=== PATIENT | male | born 1965 | race Caucasian/White ===

== ENCOUNTER 2018-01-18 13:29 | Emergency (ER) | payer SELFPAY ==
[2018-01-18] MEDS ORDERED: Fluorescein Sod TOPICAL 0.6* 0.6 MG TEST OPHTHALMIC ONE (14:04)
--- NOTE | 2018-01-18 14:13 | ED ---
Throat Pain/Nasal Congestion - HPI Summary HPI Summary: This is scryusrae Miller Culp documenting for attending Bertt Lee MD. This patient is a 52 year old M presenting to [facility] with a chief complaint of an aching L eye irritation since last night. The patient rates the pain 4/10 in severity. He believes it is rust from working on a car for his son at home. He treated it by flushing with water [employer]. He typically takes medications for HTN, but he did not take it this morning. - History of Current Complaint Chief Complaint: EDEyeProblem Time Seen by Provider: 01/18/18 14:03 Hx Obtained From: Patient Onset/Duration: Sudden Onset, Lasting Days - since last night, Still Present Severity: Moderate Cough: None - Allergies/Home Medications Allergies/Adverse Reactions: Allergies Allergy/AdvReac Type Severity Reaction Status Date / Time No Known Allergies Allergy Verified 01/18/18 13:37 Home Medications: Home Medications Lisinopril/HCTZ 10/12.5(NF) 10 - 12.5 mg PO DAILY 01/18/18 [History Confirmed ] PMH/Surg Hx/FS Hx/Imm Hx Endocrine/Hematology History: Denies: Hx Diabetes, Hx Thyroid Disease Cardiovascular History: Reports: Hx Hypertension Respiratory History: Denies: Hx Asthma, Hx Chronic Obstructive Pulmonary Disease (COPD) GI History: Denies: Hx Ulcer - Surgical History Surgery Procedure, Year, and Place: hernia repair, back Infectious Disease History: No Infectious Disease History: Denies: Hx Hepatitis, Hx Human Immunodeficiency Virus (HIV), Traveled Outside the [place] in Last 30 Days - Family History Known Family History: Positive: Cardiac Disease, Other - Cancer Negative: Hypertension, Diabetes - Social History Occupation: Employed Full-time Alcohol Use: Weekly Substance Use Type: Reports: None Smoking Status (MU): Never Smoked Tobacco Review of Systems Negative: Fever Positive: Other - aching L eye irritation All Other Systems Reviewed And Are Negative: Yes Physical Exam - Summary Physical Exam Summary: Appearance: Well appearing, no pain distress Skin: warm, dry, reflects adequate perfusion Head/face: normal Eyes: EOMI, GLEN. No foreign body with eye eversion. No injection. No fluorescein uptake. ENT: normal Neck: supple, non-tender Respiratory: CTA, breath sounds present Cardiovascular: RRR, pulses symmetrical Abdomen: non-tender, soft Bowel Sounds: present Musculoskeletal: normal, strength/ROM intact Neuro: normal, sensory motor intact, A&Ox3 Triage Information Reviewed: Yes Vital Signs On Initial Exam: Initial Vitals Temp Pulse Resp BP Pulse Ox 97.8 F 76 16 152/95 96 01/18/18 13:34 01/18/18 13:34 01/18/18 13:34 01/18/18 13:34 01/18/18 13:34 Vital Signs Reviewed: Yes Diagnostics - Vital Signs Vital Signs Temp Pulse Resp BP Pulse Ox 01/18/18 13:34 97.8 F 76 16 152/95 96 - Laboratory Lab Statement: Any lab studies that have been ordered have been reviewed, and results considered in the medical decision making process. EENT Course/Dx - Course Course Of Treatment: No foreign body definitively identified by everting the lids. No floor seen uptake was seen. Slight discomfort was relieved with tetracaine topical. I will prescribe erythromycin and have him follow up closely with primary care physician. No evidence for iritis. No photophobia, pupillary constriction etc. - Diagnoses Provider Diagnoses: Sensation of foreign body in eye Discharge - Sign-Out/Discharge Documenting (check all that apply): Patient Departure - D/C - Discharge Plan Condition: Improved Disposition: HOME Prescriptions: Erythromycin OPTH OINT* [Erythromycin 0.5% OPTH OINT*] 1 applic LEFT EYE TID 3 Days #1 ophth.oint Patient Education Materials: Eye Foreign Body (ED) Referrals: Keyur Linares MD [Medical Doctor] - Additional Instructions: Call the eye doctor to follow-up first thing Saturday. Return with eye pain, redness, worse, new symptoms or other concerns. - Billing Disposition and Condition Condition: IMPROVED Disposition: Home
[2018-01-18] MEDS ORDERED: Tetracaine 0.5% OPTH.SOL 15ML* BTL ONE (14:16)
[2018-01-18 15:38] VITALS: BP 155/101
== END 2018-01-18 15:36 | disposition home or self-care (01) ==
LOC: ED 13:29
DX: H57.8 Other specified disorders of eye and adnexa (principal); I10 Essential (primary) hypertension; Z82.49 Family history of ischemic heart disease and other diseases of the circulatory system; Z80.9 Family history of malignant neoplasm, unspecified
CPT/HCPCS: 99282; A9270-GY